=== PATIENT | male | born 1975 | race Two or more races ===

== ENCOUNTER 2023-07-12 15:51 | Emergency (ER) | payer OTHER ==
[~2023-07-12] VITALS: Ht 182.9 cm; Wt 90.7 kg
[2023-07-12 17:46] LABS: HEMATOCRIT 28.9 % (39.0-48.0); HEMOGLOBIN 9.5 g/dL (13-16.00); MEAN CELL VOLUME 94.4 fL (80.0-100.00); MEAN CORPUSCULAR HEMOGLOBIN 30.9 pg (27.00-32.0); MEAN CORPUSCULAR HGB CONC 32.7 g/dl (32.0-36.0); PLATELET COUNT 417 K/uL (150-450); RED BLOOD COUNT 3.06 M/uL (4.00-6.00); RED CELL DISTRIBUTION WIDTH 16.8 % (11.5-14.5)
[2023-07-12 18:11] LABS: CREATININE SERUM 0.46 mg/dL (0.70-1.30); GFR 195.4; POTASSIUM 4.26 mEq/L (3.5-5.1)
== END 2023-07-13 06:50 | disposition designated cancer center or children's hospital (05) ==
LOC: ER 15:51
PROVIDERS: General Practice
DX: S82.61XA Displaced fracture of lateral malleolus of right fibula, initial encounter for closed fracture (principal); W10.9XXA Fall (on) (from) unspecified stairs and steps, initial encounter; Y93.9 Activity, unspecified; Y92.019 Unspecified place in single-family (private) house as the place of occurrence of the external cause; Y99.9 Unspecified external cause status

== ENCOUNTER 2023-08-30 17:58 | Emergency (ER) | payer OTHER ==
[~2023-08-30] VITALS: Ht 167.6 cm; Wt 81.6 kg
== END 2023-08-30 20:23 | disposition home or self-care (01) ==
LOC: ER 17:59
DX: M12.572 Traumatic arthropathy, left ankle and foot (principal)